=== PATIENT | male | born 1960 | race African-American/Black ===

== ENCOUNTER 2016-06-21 05:31 | Emergency (ER) | payer OTHER, SELFPAY ==
[~2016-06-21] VITALS: Ht 185.4 cm; Wt 111.0 kg
[2016-06-21] MEDS ORDERED: SODIUM CHLORIDE 0.9% 1,000 ML IV ONE (06:24)
[2016-06-21] MEDS ORDERED: LORAZEPAM 2MG/ML CPJ IV ONE (06:30)
[2016-06-21] MEDS ORDERED: LEVETIRACETAM 500MG PREMIX 100 ML IV ONE (06:30)
[2016-06-21 06:49] LABS: BASOPHILS % 0.8 % (0.0-2.0); EOSINOPHILS % 3.1 % (0.0-5.0); HEMATOCRIT. 40.4 % (42.0-52.0); HEMOGLOBIN. 13.7 g/dL (14.0-18.0); MEAN CORPUSCULAR HEMOGLOBIN 28.8 pg (28.0-32.0); MEAN CORPUSCULAR HGB CONC 33.9 g/dL (31.0-37.0); MEAN CORPUSCULAR VOLUME 84.9 fL (80.0-94.0); MEAN PLATELET VOLUME 9.3 fl (7.4-10.4); MONOCYTES % 7.7 % (2.0-8.0); NEUTROPHILS % 67.4 % (40.0-76.0); PLATELET 151 x1000/uL (130-400); RED BLOOD CELL COUNT 4.75 mill/uL (4.7-6.1); RED CELL DISTRIBUTION WIDTH 13.9 % (11.6-14.6); WHITE BLOOD COUNT 4.9 x1000/uL (4.5-11.0)
[2016-06-21 06:51] LABS: PROTHROMBIN TIME 10.7 sec
[2016-06-21 06:54] LABS: AMMONIA 47 uMol/L (<32); INDEX HEMOLYSI 1 (1-3)
[2016-06-21 06:56] LABS: ALANINE AMINOTRANSFERASE 46 IU/L (13-61); ALBUMIN 3.5 g/dL (3.4-5.0); ANION GAP 17; CALCIUM 8.7 mg/dL (8.5-10.1); CARBON DIOXIDE 26 mEq/L (21-32); CHLORIDE 98 mEq/L (98-107); ETHANOL BLOOD < 10 mg/dL; INDEX HEMOLYSI 1 (1-3); INDEX ICTERIC 1 (1-4); INDEX LIPEMIC 1 (1-3); UREA NITROGEN BLOOD 12 mg/dL (7-21)
[2016-06-21 07:00] LABS: NT PRO B-TYPE NATRIURETIC PEP 101 pg/mL (5-125); TROPONIN I < 0.02 ng/mL (0.00-0.04); eGFR > 60 mL/min (>60)
[2016-06-21] MEDS ORDERED: KETOROLAC 30MG/ML VIAL IV ONE (09:00)
[2016-06-21 09:40] LABS: *AMPHETAMINES SCREEN URINE NEGATIVE (NEGATIVE); *BARBITURATES SCREEN URINE NEGATIVE (NEGATIVE); *BENZODIAZEPINES SCREEN URINE NEGATIVE (NEGATIVE); *COCAINE SCREEN URINE NEGATIVE (NEGATIVE); CANNABINOID URINE SCREEN NEGATIVE (NEGATIVE); ECSTASY MDMA SCREEN URINE NEGATIVE (NEGATIVE); GLUCOSE URINE 1+ (NEGATIVE); KETONES URINE TRACE (NEGATIVE); LEUKOCYTE ESTERASE URINE TRACE (NEGATIVE); METHADONE URINE SCREEN NEGATIVE (NEGATIVE); NITRITE URINE NEGATIVE (NEGATIVE); OCCULT BLOOD URINE 2+ (NEGATIVE); OPIATES URINE SCREEN NEGATIVE (NEGATIVE); PHENCYCLIDINE URINE SCREEN NEGATIVE (NEGATIVE); PROTEIN URINE 2+ (NEGATIVE); SPECIFIC GRAVITY URINE 1.026 (1.005-1.030); UROBILINOGEN URINE 0.2 E.U./dL (0.2-1.0)
[2016-06-21 09:41] LABS: CLARITY URINE CLEAR (CLEAR); COLOR URINE DARK YELLOW (YELLOW)
[2016-06-21 09:51] LABS: BACTERIA URINE 1+; MUCUS URINE 2+ /lpf (NONE/TRACE)
[2016-06-21 09:52] LABS: COARSE GRANULAR CASTS URINE 0-5 /lpf; SQUAMOUS EPITHELIAL CELL URINE 1+ /lpf (RARE/1+)
[2016-06-21] MEDS ORDERED: POTASSIUM CHLORIDE 20MEQ TABLET SR PO ONE (10:15)
[2016-06-21 10:40] VITALS: BP 138/103
== END 2016-06-21 11:42 | disposition home or self-care (01) ==
LOC: ER 05:32
DX: G40.89 Other seizures (principal); I10 Essential (primary) hypertension; M10.9 Gout, unspecified
CPT/HCPCS: 36415; 70450; 71010; 72070; 72100; 80053; 80305; 81001; 82140; 83880; 84484; 85025; 85610; 93005; 96361; 96365; 96375; 99285; G0482; J1885; J1953; J2060; Z7610; J7030